=== PATIENT | female | born 1995 | race Caucasian/White ===

== ENCOUNTER 2018-06-11 03:02 | Emergency (ER) | payer OTHER ==
[2018-06-11 03:13] VITALS: BP 146/90; PULSE 89; RESP 16; TEMP 98.6; O2SAT 99
[2018-06-11] MEDS ORDERED: Naproxen 500 MG TAB PO STA (03:53)
--- NOTE | 2018-06-11 03:56 | ED PDOC ---
Lower Extremity Pain/Injury Time Seen by Provider: 06/11/18 03:15 Chief Complaint (Nursing): Lower Extremity Problem/Injury Chief Complaint (Provider): Lower Extremity Problem/Injury History Per: Patient History/Exam Limitations: no limitations Onset/Duration Of Symptoms: Days (x3) Current Symptoms Are (Timing): Still Present Additional Complaint(s): 23 y/o female presents to the ED with a three day history of atraumatic right foot pain, mostly on the plantar aspect. Patient states pain is worse in the morning and with walking. Patient works standing and walking a lot. Otherwise: (-) numbness, (-) weakness, (-) joint pain, (-) other injury. PMD: None Provided Past Medical History Reviewed: Historical Data, Nursing Documentation, Vital Signs Vital Signs: Last Vital Signs Temp 98.6 F 06/11/18 03:12 Pulse 89 06/11/18 03:12 Resp 16 06/11/18 03:12 BP 146/90 06/11/18 03:12 Pulse Ox 99 06/11/18 03:12 - Medical History PMH: No Chronic Diseases - Surgical History Surgical History: No Surg Hx - Family History Family History: States: Unknown Family Hx - Home Medications Home Medications: Ambulatory Orders Medication Instructions Recorded Ciprofloxacin [Cipro] 500 mg PO ONCE #1 tab 04/10/15 Ofloxacin Ophth 0.3% [Ocuflox 1 drop PO Q4 #1 bottle 07/25/16 Ophth 0.3%] Naproxen 500 mg PO BID PRN #20 tablet 06/11/18 - Allergies Allergies/Adverse Reactions: Allergies Allergy/AdvReac Type Severity Reaction Status Date / Time No Known Allergies Allergy Verified 04/10/15 23:01 Review of Systems ROS Statement: Except As Marked, All Systems Reviewed And Found Negative Musculoskeletal: Positive for: Foot Pain (right ) Physical Exam - Reviewed Nursing Documentation Reviewed: Yes Vital Signs Reviewed: Yes - Physical Exam Comments: GENERAL APPEARANCE: Patient is awake, alert, oriented x 3, in no acute distress. SKIN: Warm, dry; (-) cyanosis. LOWER EXTREMITY: (-) swelling, (-) tenderness, (+) full range of motion, (-) deformity. CARDIOVASCULAR: (+) distal pulse. NEUROLOGIC: (+) distal sensation. - ECG O2 Sat by Pulse Oximetry: 99 (RA) Pulse Ox Interpretation: Normal Medical Decision Making Medical Decision Making: Time: 352 Plan: -- Naproxen 500 mg PO -- Patient diagnosed with plantar fasciitis. Advised to rest and ice. Advised to follow up with podiatry referral in 1-2 days without fail. Advised to take medication as prescribed. Return to the emergency room at any time for any new or worsening symptoms. Patient states she fully agrees with and understands discharge instructions. States that she agrees with the plan and disposition. Verbalized and repeated discharge instructions and plan. I have given the patient opportunity to ask any additional questions. Scribe Attestation: Documented by Colleen Adams acting as a scribe for Cora Knox PA-C. Provider Scribe Attestation: All medical record entries made by the Scribe were at my direction and personally dictated by me. I have reviewed the chart and agree that the record accurately reflects my personal performance of the history, physical exam, medical decision making, and the department course for this patient. I have also personally directed, reviewed, and agree with the discharge instructions and disposition. Disposition - Clinical Impression Clinical Impression: Plantar fasciitis of right foot - Patient ED Disposition Is Patient to be Admitted: No Counseled Patient/Family Regarding: Diagnosis, Need For Followup, Rx Given - Disposition Referrals: Andrey Cervantes DPM [Staff Provider] - Disposition: Routine/Home Disposition Time: 04:00 Condition: STABLE Additional Instructions: Thank you for letting us take care of you today. You were treated for plantar fasciitis. The emergency medical care you received today was directed towards the acute presenting symptoms. If you were prescribed any medication, please fill it and give as directed. It may take several days for your symptoms to resolve. Return to the Emergency Department at any time if symptoms worsen, do not improve, or if any other problems arise. Please call one of the physicians/clinics you have been referred to that are listed on the Patient Visit Information form that is included in your discharge packet. Bring any paperwork you were given at discharge with you along with any medications to your follow up visit. Our treatment cannot replace ongoing medical care by a primary care provider (PCP) outside of the emergency department. Thank you for allowing the [facility] team to be part of your care today. 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
== END 2018-06-11 04:05 | disposition home or self-care (01) ==
LOC: H.ER 03:02
DX: M72.2 Plantar fascial fibromatosis (principal)